=== PATIENT | female | born 1990 | race Two or more races ===

== ENCOUNTER 2025-06-07 20:59 | Emergency (ER) | payer MEDICAID, SELFPAY ==
[2025-06-07 21:01] VITALS: BMI 43.2
[2025-06-07 22:03] VITALS: BP 156/94; PULSE 73; RESP 18; TEMP 36.7; O2SAT 98
--- NOTE | 2025-06-07 22:17 | EDNOTE_ITS ---
ED Dental RME/HPI General Chief complaint: General Adult/Misc Complain Stated complaint: BLEEDING FROM GUMS AFTER DEEP CLEANING TODAY Time Seen by Provider: 06/07/25 22:10 Arrival date/time: 06/07/25 20:59 34F with history of DM presents to ED with bleeding from R lower gums after deep cleaning at dentist today. Limitations: no limitations Related Data Home Medications ?Medication ?Instructions ?Recorded ?Confirmed tizanidine 2 mg tablet 2 mg PO QPM PRN Muscle Pain 02/26/24 02/26/24 Held on 02/28/24. Instructions: Resume on 03/06/24. Hold until PCP instructions Previous Rx's ?Medication ?Instructions ?Recorded ondansetron 4 mg disintegrating 4 mg PO Q6H PRN nausea and 10/22/23 tablet vomiting #10 tabs acetaminophen 650 mg 650 mg PO Q8H PRN pain (inte nsity 02/28/24 tablet,extended release (8 Hour 1- 6 /10) #10 tabs Pain Reliever) Allergies Allergy/AdvReac Type Severity Reaction Status Date / Time latex Allergy Intermediate SWELLING Verified 06/07/25 21:06 STEROID EYE DROPS AdvReac Mild THRUSH Uncoded 06/07/25 21:06 Review of Systems Review of Systems Systems Reviewed: All systems reviewed, normal except as documented ENT Ears, Nose, Mouth, and Throat: Reports as per HPI and Reports other (dental bleeding) Past Medical History Past Medical History CARDIAC: Negative Cardiac Disorders or Congestive Heart Failure RESPIRATORY: Positive Sleep Apnea; Negative Chronic Obstructive Pulmonary Disease (COPD) or Asthma GASTROINTESTINAL: Positive Gastrointestinal Disorders GENITOURINARY: Negative Renal Disease REPRODUCTIVE: Positive Previous Pregnancies ENDOCRINE: Positive Diabetes Mellitus Type 2; Negative Diabetes Mellitus Type 1 HEMATOLOGIC: Negative Sickle Cell Disease OTHER HISTORY: Negative Autoimmune Disease, Blood Transfusions (never had before), Blood Transfusion Reaction or Anesthesia Reactions Family History FAMILY HISTORY: Positive Family Cancer (grandfather colon cancer); Negative Family Surgery or Family Anesthesia Reaction Social History SMOKING STATUS: Never smoker SUBSTANCE USE: marijuana ED Exam General Limitations: Present no limitations General appearance: Present alert and in no apparent distress Head Head exam: Present atraumatic ENT ENT exam: Present mucous membranes moist Expanded ENT Exam Teeth exam: Present other (dental bleeding) Neck Neck exam: Present normal inspection, full ROM and trachea midline Chest Chest inspection: Present normal inspection and symmetric chest wall rise Neurological Exam Neurological exam: Present alert and oriented X3 Psychiatric Psychiatric exam: Present normal affect and normal mood Skin Skin exam: Present warm, dry, intact and normal color Course Quality Measures none Orders Category Date Time Status Tranexamic Acid Inj Med 06/07/25 22:11 Discontinued 1,000 mg IV X1 ONE Tranexamic Acid Inj Med 06/07/25 23:28 Discontinued 1,000 mg IV X1 ONE Tranexamic Acid Inj Med 06/08/25 00:43 Discontinued 1,000 mg IV X1 ONE Vital Signs Vital signs: Vital Signs Temperature 98.1 F 06/07/25 22:03 Pulse Rate 73 06/07/25 22:03 Respiratory Rate 18 06/07/25 22:03 Blood Pressure 156/94 H 06/07/25 22:03 Pulse Oximetry (%) 98 06/07/25 22:03 Oxygen Delivery Method Room Air 06/07/25 22:03 O2 at 98% on RA and WNLs Dental / Oral MDM Narrative MDM Narrative:: 34F with history of DM presents to ED with bleeding from R lower gums after deep cleaning at dentist today. Physical exam reveals some bleeding from R lower gums. Patient is afebrile, calm, and alert. Bleeding stopped with topical TXA. Patient data External records reviewed:: [facility] previous records Clinical information provided by:: patient Social determinants that could affect healthcare access:: none Patient has the following chronic illnesses:: DM How is presenting disease/condition affected by chronic disease/condition?: exacerbated by Evaluation data The following diagnostics were reviewed and interpreted by me:: other (specify) (none) Lab and/or radiology exams considered but not ordered:: not ordered Interpretation Summary: n/a Medications / Prescriptions Medications or Prescriptions considered but not ordered:: ordered Medication administrations:: Medication Administration History Discontinued Medications Tranexamic Acid (Tranexamic Acid Inj 1,000 Mg/10 Ml Vial) 1,000 mg IV X1 ONE Stop: 06/07/25 22:12 Last Admin: 06/07/25 22:40 Dose: 1,000 mg Documented By: AM Tranexamic Acid (Tranexamic Acid Inj 1,000 Mg/10 Ml Vial) 1,000 mg IV X1 ONE Stop: 06/07/25 23:29 Last Admin: 06/07/25 23:41 Dose: 1,000 mg Documented By: AM Tranexamic Acid (Tranexamic Acid Inj 1,000 Mg/10 Ml Vial) 1,000 mg IV X1 ONE Stop: 06/08/25 00:44 Last Admin: 06/08/25 00:52 Dose: 1,000 mg Documented By: AM above Consultations Consultation(s) initiated? (list below): No Diagnosis Dental Differential Diagnosis: gingival abscess, dental caries, toothache, dental abscess, fracture of tooth, aphthous ulcer and other (dental bleeding) Most likely diagnosis given after review of the tests above:: dental bleeding Admission Indicated Admission indicated?: not indicated Admission Request Was there a request for admission?: No Disposition Plan Disposition Plan: Discharge Discharge Attestation Discharge Attestation: The patient and all family members were given an opportunity to ask questions and understood the discharge instructions. Discharge instructions specifically effects, indications for sooner follow up or return to the emergency department, and the expected course of current diagnosis. Patient condition: Stable Discharge Plan Plan Patient Disposition: HOME (Self Care) Discharge Disposition comment: Stable Prescriptions/Referrals Prescriptions/Med Rec: No Action ondansetron 4 mg tablet,disintegrating 4 mg PO Q6H PRN (Reason: nausea and vomiting) Qty: 10 0RF tizanidine 2 mg tablet 2 mg PO QPM PRN (Reason: Muscle Pain) acetaminophen [8 Hour Pain Reliever] 650 mg tablet extended release 650 mg PO Q8H PRN (Reason: pain (intensity 1- 6 /10)) Qty: 10 0RF Referrals: Clarita Parker PA-C [Primary Care Provider] - In 1 week Problem List Clinical Impression: Surgical wound hemorrhage after dental procedure Patient/Caregiver Discharge Instructions Education Materials: ED Post Op Wound Check, Bleeding Additional Instructions: Please follow-up with PCP within 24-48 hours and return immediately if symptoms worsen. Advanced diet grudually. Print Language: Portuguese Stand Alone Forms: Patient Portal Info Letter JOEL/TATY Supervising Physician DULCE Supervising Physician: Dr. Ruvalcaba
[2025-06-07] MEDS: TRANEXAMIC ACID INJ 1,000 MG/10 ML VIAL 1000 MG IV ×2 (22:40→23:41)
[2025-06-07 23:36] VITALS: BP 151/83; PULSE 67; RESP 17; O2SAT 96
[2025-06-08] MEDS: TRANEXAMIC ACID INJ 1,000 MG/10 ML VIAL 1000 MG IV (00:52)
[2025-06-08 00:53] VITALS: BP 123/79; PULSE 64; RESP 16; TEMP 36.6; O2SAT 97
== END 2025-06-08 01:23 | disposition home or self-care (01) ==
PROVIDERS: Emergency Provider Emergency Medicine; PCP Physician Assistant Medical
DX: K91.840 Postprocedural hemorrhage of a digestive system organ or structure following a digestive system procedure (principal); E11.9 Type 2 diabetes mellitus without complications
CPT/HCPCS: 99282; J3290